=== PATIENT | female | born 1945 | race Caucasian/White ===

== ENCOUNTER → 2017-01-22 | Outpatient (CLI) | payer OTHER ==
[~2017-01-22] MED LIST: BUPR-267 PO; CALC600T9 PO; EZET10TA47 PO; LYSI500C2 PO; NTRGSL/4 UT; OXYC-643 PO; TRIATAB3 PO; ZOLP10TA PO
--- NOTE | 2017-01-22 13:03 | MAMMOGRAPHY REPORT ---
BILATERAL DIGITAL SCREENING MAMMOGRAM WITH CAD: 01/22/2017 CLINICAL HISTORY: Routine screening. Patient has no complaints. TECHNIQUE: Current study was also evaluated with a Computer Aided Detection (CAD) system. Bilatera l CC and MLO views were obtained. COMPARISON: Comparison is made to exams dated: 01/18/2015 mammogram, 01/22/2016 mammogram, 11/25/2013 mammogram, 11/08/2012 mammogram, and 11/03/2011 mammogram - [facility]. BREAST COMPOSITION: The tissue of both breasts is almost entirely fatty. FINDINGS: No suspicious masses, calcifications, or areas of architectural distortion are noted in e ither breast. There has been no significant interval change compared to prior exams. There are stab le postsurgical changes from bilateral reduction mammoplasty. Bilateral benign-appearing calcificat ions are not significantly changed. Lobulated circumscribed benign-appearing 8 mm mass seen within the left lower inner quadrant is not significantly changed dating back to the 2007 exam. IMPRESSION: ACR BI-RADS CATEGORY 2: BENIGN There is no mammographic evidence of malignancy. A 1 year screening mammogram is recommended. The p atient will receive written notification of the results. Approximately 10% of breast cancers are not detected with mammography. A negative mammographic repor t should not delay biopsy if a clinically suggestive mass is present. Yelena Lama M.D. ah/:01/22/2017 10:02:25 Tank Riveter: Ange HEBERT)([place]), [facility] letter sent: Normal 1/2 BI-RADS Code: ACR BI-RADS Category 2: Benign
== END | disposition home or self-care (01) ==
LOC: C.MAMM 09:11
PROVIDERS: ATTEND Family Medicine
DX: Z12.31 Encounter for screening mammogram for malignant neoplasm of breast (principal)

== ENCOUNTER 2018-01-12 22:57 | Emergency (ER) | payer OTHER ==
[~2018-01-12] VITALS: Ht 172.7 cm; Wt 89.8 kg
[2018-01-12 23:00] VITALS: TEMP 36.3; Ht 172.7 cm; Wt 89.8 kg
[2018-01-12] MEDS ORDERED: ASPIRIN 324 MG CHEW PO STA (23:24)
[2018-01-12] MEDS ORDERED: NITROGLYCERIN 0.4 MG SL PER TAB CHARGE SL PRN (23:30)
--- NOTE | 2018-01-12 23:40 | EMERGENCY ROOM VISIT NOTE ---
History Report prepared by Donna: Micah Estes Under the Supervision of: Dr. Omkar Conway M.D. First contact with patient: 23:15 Chief Complaint: CHEST PAIN Stated Complaint: CHEST PRESSURE, CHEST PAIN, SOME BACK PAIN Nursing Triage Summary: Patient ambulatory to triage with an upright and steady gait, states "I have had chest pains since Thursday. 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 The pain is in the center of my chest and goes up my throat and into the center of my back. I have a fluttering in my chest along with this dull pressure." History of Present Illness The patient is a 72 year old female who presents to the Emergency Room with complaints of a constant chest pressure beginning about an hour and a half ago. The patient states that she has been having intermittent chest pressure and back pain beginning 2 days ago. 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 She reports that her pain goes into her neck and jaw. The patient states that her heart feels "fluttery." She denies any LOC, shoulder pain, nausea, vomiting, abdominal pain, urinary symptoms, change to her bowels, leg edema, calf pain, SOB, headache, black/bloody stool, and recent travel. She also denies any recent trauma. The patient states that she has a history of arthritis and a cholecystectomy, and notes that her current pain feels similar to when she had her cholecystectomy. She reports that she does not have a personal history of heart disease, blood clots, and thyroid problems , but states that she has a family history of heart disease. She notes that she took a Tylenol for her arthritis prior to teaching her class tonight. Source of History: patient Onset: an hour and a half ago Position: chest Quality: pressure Timing: constant Associated Symptoms: + back pain, No LOC, No headache, No SOB, No nausea, No vomiting, No abdominal pain, No urinary symptoms Note: The patient also complains of neck, jaw pain, and a "fluttery" heart. She denies any shoulder pain, change to her bowels, leg edema, calf pain, and black/ bloody stool. Review of Systems See HPI for pertinent positives & negatives. A total of 10 systems reviewed and were otherwise negative. Past Medical & Surgical Medical Problems: (1) Arthritis (2) Essential hypertension (3) HYPERLIPIDEMIA NEC/NOS (4) Vaginal hernia Surgical Problems: (1) History of cholecystectomy Family History FHx: heart disease Social History Smoking Status: Never Smoker Alcohol Use: none Drug Use: none Marital Status: Housing Status: lives with family Occupation Status: retired Current/Historical Medications Scheduled Bupropion Hcl (Bupropion Hcl Er), 150 MG PO BID Calcium Carbonate-Vitamin D (Calcium + D), 2 TABLETS PO DAILY Docusate Sodium (Colace), 100 MG PO DAILY Meloxicam (Mobic), 15 MG PO DAILY Triamterene/Hctz (Triamterene/Hctz 37.5-25MG), 1 TAB PO DAILY Zolpidem Tartrate (Ambien), 10 MG PO HS Allergies Coded Allergies: Codeine (Verified Allergy, Unknown, unknown, 01/13/18) Meperidine (Verified Allergy, Unknown, sates she thinks is allergic, ) Physical Exam Vital Signs Date Time Temp Pulse Resp B/P (MAP) Pulse Ox O2 Delivery O2 Flow Rate FiO2 01/13/18 02:50 62 18 120/72 98 Room Air 01/13/18 01:08 74 18 108/78 97 Room Air 01/13/18 00:02 75 01/13/18 00:01 79 18 167/97 98 Room Air 01/12/18 23:04 98 Room Air 01/12/18 23:00 36.3 85 20 180/96 98 Room Air Physical Exam GENERAL: Patient is well appearing, mildly anxious appearing, and in minimal distress. EYES: No scleral icterus, unremarkable pupils. ENT: Mucous membranes moist, no nasal congestion. NECK: No masses appreciated, no meningismus, trachea is midline. RESPIRATORY: No dyspnea. Clear to auscultation and equal bilaterally. No wheeze , no rhonchi. CARDIOVASCULAR: Regular rate and rhythm. No murmurs, rubs, gallops appreciated. GASTROINTESTINAL: Abdomen soft, nontender, no peritonitis. Bowel sounds positive. No masses appreciated. BACK: No midline tenderness, no CVA tenderness EXTREMITIES: Normal motion all extremities, no cyanosis, no edema. NEUROLOGIC: Alert and oriented, no acute motor or sensory deficits, no focal weakness, cranial nerves grossly intact. SKIN: No rash, no jaundice, no diaphoresis. Medical Decision & Procedures ER Provider Diagnostic Interpretation: X ray results are stated below per my interpretation: Chest: 1 view: No infiltrate, no effusion, normal cardiac border. Radiology results and stated below per my review and radiologist interpretation: CTA CHEST: No evidence of pulmonary embolus or aortic dissection. Prior cholecystectomy. Evidence of prior granulomatous disease. Radiologist: Harriet Castro DO. Laboratory Results 01/12/18 23:59 Red Blood Count 4.44, Mean Corpuscular Volume 91.9, Mean Corpuscular Hemoglobin 31.5, Mean Corpuscular Hemoglobin Concent 34.3, Mean Platelet Volume 9.8, Neutrophils (%) (Auto) 48.1, Lymphocytes (%) (Auto) 42.4, Monocytes (%) (Auto) 7.6, Eosinophils (%) (Auto) 1.2, Basophils (%) (Auto) 0.5, Neutrophils # (Auto) 2.71, Lymphocytes # (Auto) 2.39, Monocytes # (Auto) 0.43, Eosinophils # (Auto) 0.07, Basophils # (Auto) 0.03 01/12/18 23:59 Test 01/12/18 23:59 01/13/18 03:11 White Blood Count 5.64 K/uL (4.8-10.8) Red Blood Count 4.44 M/uL (4.2-5.4) Hemoglobin 14.0 g/dL (12.0-16.0) Hematocrit 40.8 % (37-47) Mean Corpuscular Volume 91.9 fL (80-100) Mean Corpuscular Hemoglobin 31.5 pg (25-34) Mean Corpuscular Hemoglobin Concent 34.3 g/dl (32-36) Platelet Count 196 K/uL (130-400) Mean Platelet Volume 9.8 fL (7.4-10.4) Neutrophils (%) (Auto) 48.1 % Lymphocytes (%) (Auto) 42.4 % Monocytes (%) (Auto) 7.6 % Eosinophils (%) (Auto) 1.2 % Basophils (%) (Auto) 0.5 % Neutrophils # (Auto) 2.71 K/uL (1.4-6.5) Lymphocytes # (Auto) 2.39 K/uL (1.2-3.4) Monocytes # (Auto) 0.43 K/uL (0.11-0.59) Eosinophils # (Auto) 0.07 K/uL (0-0.5) Basophils # (Auto) 0.03 K/uL (0-0.2) RDW Standard Deviation 44.0 fL (36.4-46.3) RDW Coefficient of Variation 13.1 % (11.5-14.5) Immature Granulocyte % (Auto) 0.2 % Immature Granulocyte # (Auto) 0.01 K/uL (0.00-0.02) Anion Gap 4.0 mmol/L (3-11) Est Creatinine Clear Calc Drug Dose 55.2 ml/min Estimated GFR () 59.4 Estimated GFR (Non- 51.2 BUN/Creatinine Ratio 27.2 (10-20) Calcium Level 9.3 mg/dl (8.5-10.1) Troponin I < 0.015 ng/ml (0-0.045) Bedside Troponin I < 0.030 ng/ml (0-0.045) Laboratory results as reviewed by me. Medications Administered Medications (Trade) Dose Ordered Sig/Raad Route Start Time Stop Time Status Last Admin Dose Admin Aspirin (Aspirin Chew) 324 mg NOW STAT PO 01/12/18 23:24 01/12/18 23:25 DC 01/12/18 23:59 324 MG Nitroglycerin (Nitrostat Tab) 0.4 mg Q5M PRN SL 01/12/18 23:30 01/13/18 04:09 DC 01/12/18 23:59 0.4 MG Sodium Chloride 500 ml @ 999 mls/hr Q31M STAT IV 01/13/18 00:39 01/13/18 01:09 DC 01/13/18 01:07 999 MLS/HR Ranitidine HCl (zANTac SYRUP) 150 mg NOW ONCE PO 01/13/18 01:00 01/13/18 01:01 DC 01/13/18 01:03 150 MG Al Hydroxide/Mg Hydroxide (Maalox Susp) 30 ml STK-MED ONCE .ROUTE 01/13/18 00:59 01/13/18 01:00 DC 01/13/18 01:02 30 ML Lidocaine HCl (Viscous Lidocaine 2% Soln) 20 ml STK-MED ONCE .ROUTE 01/13/18 00:59 01/13/18 01:00 DC 01/13/18 01:03 20 ML Acetaminophen (Tylenol Tab) 1,000 mg NOW STAT PO 01/13/18 03:11 01/13/18 03:12 DC 01/13/18 03:19 1,000 MG ECG Per My Interpretation Indication: chest pain Rate (beats per minute): 76 Rhythm: sinus rhythm Findings: other (PACs, no ischemia, QTC 436) ED Course 2319: The patient was evaluated in room B8. A complete history and physical exam was performed. 0003: I reevaluated and updated the patient. She is currently receiving her nitroglycerin and is still having discomfort. 0049: I rechecked the patient. She notes that the nitroglycerin had no effect on her symptoms. She is agreeable to a repeat cardiac enzyme in two hours, and does not want to stay in the hospital tonight. 0145: I rechecked the patient. Her symptoms have only mildly improved after the GI cocktail. She notes that still wants to go home but is agreeable to CT of the chest for PE and aortic evaluation. 0330: Reevaluated the patient. Discussed results and discharge instructions: She verbalized understanding and agreement. The patient is ready for discharge. Medical Decision Differential: Cardiac Ischemia (STEMI, NSTEMI, Unstable Angina, etc), Aortic Dissection, Arrhythmia, Pulmonary Embolism, Pneumonia, Pneumothorax, MSK, Infectious, Pericarditis/Myocarditis, Esophageal Rupture, Gastrointestinal, amongst other pathologies entertained. 72 yr old female with pressure like chest pain substernal radiating to back and base of neck arrives for evaluation. Initial EKG and trop negative. CXR clear. No improvement with SLNTG. Questionable improvement with IV Fluids and GI Cocktail. Repeat Trop still negative. As continued discomfort felt further imaging warranted and thus CTA Chest done which is negative. Patient with repeat Trop a 3rd time which is still negative. Pain eventually resolving and she is feeling well. She very much wishes to go home. Suspect this is MSK/ Costochondral but I made clear to her that given her age she is still at risk of ACS. Made it very clear she must call PCP in am and set up follow up, as well as to discuss HTN while there. She and make clear they wish to go home and given extended rule out here I feel this is reasonable. She is aware of symptoms requiring RTED and is stable at discharge. Medication Reconcilliation Current Medication List: was personally reviewed by me Blood Pressure Screening Patient's blood pressure: Normal blood pressure Blood pressure disposition: Did not require urgent referral Impression Primary Impression: Substernal precordial chest pain Additional Impression: Hypertension Scribe Attestation The scribe's documentation has been prepared under my direction and personally reviewed by me in its entirety. I confirm that the note above accurately reflects all work, treatment, procedures, and medical decision making performed by me. Departure Information Dispostion Home / Self-Care Referrals Payam Mccann D.O. (PCP) Forms Call Back Authorization, HOME CARE DOCUMENTATION FORM, IMPORTANT VISIT INFORMATION Patient Instructions ED Chest Pain Atypical Unkn Cause, [facility] Additional Instructions If you develop worsening chest pain, shortness of breath, passing out or other concerns call 911 or return immediately. You must call your Primary Provider in the morning to schedule an urgent follow up to discuss further testing. This is very important! Your blood pressure was elevated during this visit. This is quite common in many people who are being evaluated in the Emergency Department for many reasons. However, it is important that you have your Primary Care Provider recheck your blood pressure and discuss whether treatment will be needed. skilled nursing elevated blood pressure can lead to strokes, heart attacks, kidney failure amongst other medical issues. If you develop severe headaches, chest pain, weakness in arms or legs, or other concerning symptoms call 911. Problem Qualifiers
[2018-01-13] MEDS ORDERED: MELO-84 PO (00:05)
[2018-01-13] MEDS ORDERED: DOCU-94 PO (00:05)
[2018-01-13 00:15] LABS: BASO % 0.5 %; BASO ABS # 0.03 K/uL (0-0.2); EOS % 1.2 %; EOS ABS # 0.07 K/uL (0-0.5); HEMATOCRIT 40.8 % (37-47); IG# 0.01 K/uL (0.00-0.02); LYMPH % 42.4 %; LYMPH ABS # 2.39 K/uL (1.2-3.4); MEAN CELL VOLUME 91.9 fL (80-100); MEAN CORPUSCULAR HEMOGLOBIN 31.5 pg (25-34); MEAN CORPUSCULAR HGB CONC 34.3 g/dl (32-36); MEAN PLATELET VOLUME 9.8 fL (7.4-10.4); MONO % 7.6 %; MONO ABS # 0.43 K/uL (0.11-0.59); NEUT % 48.1 %; NEUT ABS # 2.71 K/uL (1.4-6.5); PLATELET COUNT 196 K/uL (130-400); RED CELL DISTRIBUTION WIDTH CV 13.1 % (11.5-14.5); WHITE BLOOD COUNT 5.64 K/uL (4.8-10.8)
[2018-01-13 00:32] LABS: BLOOD UREA NITROGEN 29 mg/dl (7-18); CALCIUM 9.3 mg/dl (8.5-10.1); CARBON DIOXIDE 30 mmol/L (21-32); CREATININE 1.08 mg/dl (0.60-1.20); GLUCOSE 100 mg/dl (70-99); POTASSIUM 3.5 mmol/L (3.5-5.1); SODIUM 140 mmol/L (136-145)
[2018-01-13] MEDS ORDERED: SODIUM CHLORIDE 0.9% 500ML 500 ML IV STA (00:39)
[2018-01-13] MEDS ORDERED: GI COCKTAIL PO STA (00:48)
[2018-01-13] MEDS ORDERED: LIDOCAINE HCL 2% VISC SOLN 20 ML UDC ONE (00:59)
[2018-01-13] MEDS ORDERED: ALUMINUM/MAGNESIUM SUSP 30 ML UDC ONE (00:59)
[2018-01-13] MEDS ORDERED: RANITIDINE HCL SYRUP 150 MG/10 ML UDC PO ONE (01:00)
[2018-01-13] MEDS ORDERED: CEPHALEXIN MONOHYDRATE 250 MG CAP PO ONE (01:45)
[2018-01-13] MEDS ORDERED: OPTIRAY 320 IV PRN (02:15)
[2018-01-13 02:50] VITALS: BP 120/72; PULSE 62; O2SAT 98
[2018-01-13] MEDS ORDERED: ACETAMINOPHEN 500 MG TAB PO STA (03:11)
--- NOTE | 2018-01-13 07:25 | DIAGNOSTIC IMAGING REPORT ---
SINGLE VIEW CHEST CLINICAL HISTORY: Atypical chest pain. FINDINGS: An AP, portable, upright chest radiograph is compared to study dated 05/04/2013. The examination is degraded by portable technique and patient rotation. The cardiomediastinal silhouette is unremarkable. Scattered calcified granulomas are incidentally noted. The lungs and pleural spaces are otherwise clear. No pneumothorax is seen. The bony thorax is grossly intact. IMPRESSION: No active disease in the chest. Electronically signed by: Roscoe Evans M.D. 01/13/2018 7:24 AM Dictated Date/Time: 01/13/2018 7:23 AM
--- NOTE | 2018-01-13 07:29 | DIAGNOSTIC IMAGING REPORT ---
CHEST CTA for PULMONARY ARTERIES CT DOSE: 398.47 mGy.cm HISTORY: Atypical chest pain extending into the back. TECHNIQUE: Multiaxial CT images of the chest were performed following the intravenous administration of contrast to evaluate the pulmonary arteries. Maximal intensity projection images were also obtained. A dose lowering technique was utilized adhering to the principles of ALARA. COMPARISON STUDY: None. FINDINGS: The visualized liver and adrenal glands are unremarkable. Cholecystectomy. Mild thickening at the gastric antrum which could be due to underdistention. Punctate calcified granuloma within the spleen. No mediastinal or hilar lymphadenopathy. No fractures within the visualized osseous structures. No pneumothorax. The central airways are patent. Calcified granuloma within the left upper lobe. Focal area of cystic change within the left lower lobe medially. This is likely chronic. No focal lung consolidations to suggest pneumonia. A 3 mm nodule within the right lower lobe on image 134. No focal lung consolidations to suggest pneumonia. A few calcified left hilar lymph nodes. Normal caliber thoracic aorta with no evidence for dissection. No evidence for pulmonary embolus. IMPRESSION: 1. No evidence for pulmonary embolus. 2. Questionable mild thickening at the gastric antrum which may be due to underdistention. If the patient is complaining of epigastric pain then consider follow-up endoscopy to exclude the less likely possibility of gastric ulceration. Electronically signed by: Maximilian Vasques M.D. 01/13/2018 7:28 AM Dictated Date/Time: 01/13/2018 7:20 AM
== END 2018-01-13 03:36 | disposition home or self-care (01) ==
LOC: C.EDB 22:58
DX: R07.2 Precordial pain (principal); I10 Essential (primary) hypertension; M19.90 Unspecified osteoarthritis, unspecified site; E11.9 Type 2 diabetes mellitus without complications; E78.5 Hyperlipidemia, unspecified; Z82.49 Family history of ischemic heart disease and other diseases of the circulatory system; Z79.899 Other long term (current) drug therapy; Z88.5 Allergy status to narcotic agent

== ENCOUNTER → 2018-01-28 | Outpatient (CLI) | payer OTHER ==
[~2018-01-28] MED LIST changes: +DOCU-94 PO; -EZET10TA47 PO; -LYSI500C2 PO; +MELO-84 PO; -NTRGSL/4 UT; -OXYC-643 PO
--- NOTE | 2018-01-28 14:44 | MAMMOGRAPHY REPORT ---
BILATERAL DIGITAL SCREENING MAMMOGRAM TOMOSYNTHESIS WITH CAD: 01/28/2018 CLINICAL HISTORY: Routine screening. Patient has no complaints. TECHNIQUE: Breast tomosynthesis in addition to standard 2D mammography was performed. Current study was also evaluated with a Computer Aided Detection (CAD) system. COMPARISON: Comparison is made to exams dated: 01/22/2017 mammogram, 01/22/2016 mammogram, 01/18/2015 m ammogram, 11/25/2013 mammogram, 11/08/2012 mammogram, and 11/03/2011 mammogram - [facility]ter. BREAST COMPOSITION: The tissue of both breasts is almost entirely fatty. FINDINGS: No suspicious masses, calcifications, or areas of architectural distortion are noted in ei ther breast. There has been no significant interval change compared to prior exams. There are stable postsurgical changes from bilateral reduction mammoplasty. Bilateral nodularity and bilateral benig n-appearing calcifications are not significantly changed. IMPRESSION: ACR BI-RADS CATEGORY 2: BENIGN There is no mammographic evidence of malignancy. A 1 year screening mammogram is recommended. The pa tient will receive written notification of the results. Approximately 10% of breast cancers are not detected with mammography. A negative mammographic report should not delay biopsy if a clinically suggestive mass is present. Yelena aLma M.D. ah/:01/28/2018 09:51:44 Automobile Technician: Honey Phillips M, [facility] letter sent: Normal 1/2 BI-RADS Code: ACR BI-RADS Category 2: Benign
== END | disposition home or self-care (01) ==
LOC: C.MAMM 09:06
PROVIDERS: ATTEND Family Medicine
DX: Z12.31 Encounter for screening mammogram for malignant neoplasm of breast (principal)

== ENCOUNTER 2021-04-09 05:00 | Observation (INO) ==
--- NOTE | 2021-03-06 12:18 | PAT Medication Instructions ---
Medication Instructions Date of Service March 06, 2021 Home Medications Medication Instructions Recorded acetaminophen [Pain Reliever] 1,000 mg PO Q8H #0 tab 07/08/18 bupropion HCl 300 mg PO QAM calcium carbonate-vitamin D3 [Calcium 500 + D] 2 tab PO QAM triamterene-hydrochlorothiazid 1 cap PO QAM PreserVision AREDS-2 1 tab PO QAM acetaminophen [Pain Reliever] 1,000 mg PO Q8H calcium carbonate-vitamin D3 [Calcium + D] 1 tab PO QAM docusate sodium [Colace] 100 mg PO BID [id number] [krill oil] 1 cap PO QAM turmeric 400 mg PO BID zolpidem [Ambien] 5 mg PO HS STOP taking 2 weeks before surgery If surgery is within 2 weeks, stop taking as soon as possible. PreserVision AREDS-2 1 tab PO QAM [id number] [krill oil] 1 cap PO QAM turmeric 400 mg PO BID DO NOT take the morning of surgery calcium carbonate-vitamin D3 [Calcium 500 + D] 2 tab PO QAM triamterene-hydrochlorothiazid 1 cap PO QAM calcium carbonate-vitamin D3 [Calcium + D] 1 tab PO QAM docusate sodium [Colace] 100 mg PO BID Take morning of surgery With a small sip of water, OTHERWISE NOTHING TO EAT OR DRINK AFTER MIDNIGHT: bupropion HCl 300 mg PO QAM acetaminophen [Pain Reliever] 1,000 mg PO Q8H (if needed, may be taken up to four hours before surgery) Take evening before surgery acetaminophen [Pain Reliever] 1,000 mg PO Q8H (if needed) docusate sodium [Colace] 100 mg PO BID zolpidem [Ambien] 5 mg PO HS Other Notes If you have any questions please call us at [phone] or [phone] or [phone] or [phone]
--- NOTE | 2021-03-07 11:37 | Anesthesiology Consultation ---
Date of Service March 07, 2021 Assessment & Plan (1) Encounter for pre-operative examination: COVID Status: As of 03/07 assessment, patient denies travel to endemic area, known exposure/sick contacts, or symptoms of COVID19. Patient advised to adhere to social distancing guidelines, wear a mask in public and avoid large crowds or unnecessary travel in the 2 weeks leading up to surgery. Preoperative COVID19 testing to be completed prior to surgery per surgeon's arrangements. Patient encouraged to be extra cautious/conscientious with COVID precautions between COVID testing and surgery. S/P R RYDER 07/06/18 -- SAB x 2 attempts, L3-L4. No complications per records. Chart Review Chart Review: Acceptable Risk for Surgery and Patient seen in Pre Admission Testing Teaching & Discussion Instructed NPO after midnight before surgery, except medications with 15 cc of water. Medication instructions provided according to the PAT guidelines. History Surgery Operation Date: 04/09/21 07:15 Proposed Procedures p Right Total Knee Arthroplasty(Right) - Boo Hurst DO Height/Weight Height: 5 ft 8.5 in Weight: 85.5 kg Allergies Allergy/AdvReac Type Severity Reaction Status Date / Time codeine Allergy Intermediate Hives Verified 03/05/21 14:21 meperidine Allergy Unknown PT UNSURE Verified 03/05/21 14:21 OF RXN celecoxib [From Celebrex] AdvReac Mild GI UPSET, Verified 03/05/21 14:21 DIARRHEA Medications Home Medications Medication Instructions Recorded Confirmed Last Taken bupropion HCl 300 mg PO QAM #0 05/04/13 03/05/21 07/05/18 20:00 150 mg calcium carbonate-vitamin D3 2 tab PO QAM #0 05/04/13 03/05/21 07/05/18 07:00 [Calcium 500 + D] two tabs triamterene-hydrochlorothiazid 1 cap PO QAM #0 tab 05/04/13 03/05/21 07/05/18 08:00 one tab PreserVision AREDS-2 1 tab PO QAM 06/10/18 03/05/21 07/05/18 08:00 one tab acetaminophen [Pain Reliever] 1,000 mg PO Q8H #0 tab 07/08/18 03/05/21 Unknown calcium carbonate-vitamin D3 1 tab PO QAM 03/05/21 03/05/21 Unknown [Calcium + D] docusate sodium [Colace] 100 mg PO BID 03/05/21 03/05/21 Unknown [id number] 1 cap PO QAM 03/05/21 03/05/21 Unknown [krill oil] turmeric 400 mg PO BID 03/05/21 03/05/21 Unknown zolpidem [Ambien] 5 mg PO HS 03/05/21 03/05/21 Unknown Past Medical History Medical History (Updated 03/08/21 @ 10:39 by David Wall) Depression Fluid retention BILAT. HANDS Hx of ovarian cancer Stage one, recently cancer free. Surgical intervention only. Hyperlipidemia HX OF Osteoarthritis Scoliosis Spinal stenosis Temporomandibular joint disorder NO LOCKING Exercise / Class Metabolic Activity II 4-5 Yardwork/Stairs/Walk up hill Past Family History Family History Other No family history of adverse response to anesthesia Past Surgical History Surgical History H/O bilateral oophorectomy History of arthroscopy RT KNEE History of bilateral breast reduction surgery History of breast biopsy RT/LEFT (BENIGN) History of cholecystectomy History of ERCP History of esophagogastroduodenoscopy (EGD) History of hysterectomy HX OF PARTIAL, FOLLOWED BY BSO AFTER DX OF OVARIAN CANCER History of tooth extraction History of total hip arthroplasty RT Hx of breast reduction, elective Past Anesthesia History No Hx of Anesthesia Complications and No Family Hx of Anesthesia Complications History of PONV No Hx of PONV and No Hx of Motion Sickness Social History Smoking Status: Never smoker Do You Dip or Chew Tobacco: No Hx Alcohol Use: Yes Alcohol type: beer, wine and hard liquor alcohol intake frequency: a few times a month Hx Substance Use: No substance use type: does not use Review of Systems Pt denies any recent chest pain, shortness of breath, palpitations, cough, fever, URI, or uncontrolled acid reflux. Physical Exam Vital Signs BP: 126/77 P: 70bpm SPO2: 96% RA T: 97.2 F R: 12 ENMT Mallampati Class: II Lab Results Anesthesia Preop Results Results Anesthesia Widget: WBC 4.85 K/uL (4.8-10.8) 03/07/21 Hgb 15.1 g/dL (12.0-16.0) 03/07/21 Hct 44.7 % (37-47) 03/07/21 Plt 232 K/uL (130-400) 03/07/21 Na 139 mmol/L (136-145) 03/07/21 K 3.8 mmol/L (3.5-5.1) 03/07/21 Cl 105 mmol/L (98-107) 03/07/21 CO2 28 mmol/L (21-32) 03/07/21 BUN 16 mg/dl (7-18) 03/07/21 Creat 0.81 mg/dl (0.6-1.2) 03/07/21 Glucose Level 95 mg/dl (70-99) 03/07/21 PT 9.9 Seconds (9.0-12.0) 03/07/21 PTT 28.0 Seconds (21.0-31.0) 03/07/21 INR 1.0 (0.9-1.1) 03/07/21 HA1c 5.8 % (4.5-5.6) H 03/07/21 Urine Color Yellow 03/07/21 Urine Appearance Clear (Clear) 03/07/21 Urine pH 7.5 (4.5-7.5) 03/07/21 Urine Specific Wellborn 1.012 (1.000-1.030) 03/07/21 Urine Protein Negative (Negative) 03/07/21 Urine Glucose (UA) Negative (Negative) 03/07/21 Urine Ketones Negative (Negative) 03/07/21 Urine Blood Negative (Negative) 03/07/21 Urine Nitrite Negative (Negative) 03/07/21 Urine Bilirubin Negative (Negative) 03/07/21 Urine Urobilinogen Negative (Negative) 03/07/21 Urine Leukocyte Esterase Negative (Negative) 03/07/21 Blood Type O Positive 03/07/21 Antibody Screen NEGATIVE 03/07/21 Testing Electrocardiogram Date: 03/07/21 Normal sinus rhythm at 60 bpm. Nondiagnostic inferior Q waves. Compared with EKG from 06/17/2018, PACs are no longer present. Chest X-Ray Date: 03/07/21 FINDINGS: PA and lateral chest radiographs are compared to study dated 06/17/2018. The heart is mildly enlarged noting atherosclerotic calcification of the thoracic aorta. The pulmonary vasculature is noncongested. Chronic interstitial thickening is similar to previous. No airspace consolidation or pleural effusion is identified. There are scattered calcified granulomas. There is no pneumothorax. The skeletal structures are osteopenic. The bony thorax appears intact. Calcified joint bodies are seen in the right shoulder. There is mild thoracolumbar scoliosis. Cholecystectomy clips are noted in the right upper quadrant. IMPRESSION: No active disease in the chest.
--- NOTE | 2021-04-07 22:12 | History & Physical Report ---
Date of Service April 09, 2021 Assessment & Plan (1) Degenerative joint disease of knee, right: I have indicated the patient for right total knee replacement. The risks, benefits and complications of surgery were explained to the patient which include but not limited to infection, acute blood loss, DVT/PE, injury to nerves, vessels, bone, soft tissue, arthrofibrosis, chronic pain, failure of the prosthesis, knee dislocation, leg length discrepancy, need for additional surgery, cardiac and pulmonary events and . The patient wished to proceed with surgery and informed consent was obtained at this time. We will plan for 81mg ASA BID post-operatively for DVT prophylaxis. Upon discharge the patient will be discharged home with home health services. Appropriate clearances by PCP were obtained. History of Present Illness Chief Complaint: Right knee pain/DJD Primary Care Provider: Payam Mccann DO The patient is a 75 year old female who presents with complaints of severe right knee pain and DJD. The patient has failed outpatient conservative treatments to this point which included NSAIDs, IA corticosteroid and LISA inj ections, home exercise/walking program. The patient's pain and limited function have progressed to the point where they severely hinder their activities of daily living and they no longer tolerate exercise programs. They are requesting to proceed with total knee replacement surgery. Allergies Allergy/AdvReac Type Severity Reaction Status Date / Time codeine Allergy Intermediate Hives Verified 04/09/21 05:34 meperidine Allergy Unknown PT UNSURE Verified 04/09/21 05:34 OF RXN celecoxib [From Celebrex] AdvReac Mild GI UPSET, Verified 04/09/21 05:34 DIARRHEA Home Medications Medication Instructions Recorded Confirmed Type bupropion HCl 300 mg PO QAM #0 05/04/13 04/09/21 History calcium carbonate-vitamin D3 2 tab PO QAM #0 05/04/13 04/09/21 History [Calcium 500 + D] triamterene-hydrochlorothiazid 1 cap PO QAM #0 tab 05/04/13 04/09/21 History PreserVision AREDS-2 1 tab PO QAM 06/10/18 04/09/21 History acetaminophen [Pain Reliever] 1,000 mg PO Q8H #0 tab 07/08/18 04/09/21 Rx calcium carbonate-vitamin D3 1 tab PO QAM 03/05/21 04/09/21 History [Calcium + D] docusate sodium [Colace] 100 mg PO BID 03/05/21 04/09/21 History [id number] 1 cap PO QAM 03/05/21 04/09/21 History [krill oil] turmeric 400 mg PO BID 03/05/21 04/09/21 History zolpidem [Ambien] 5 mg PO HS 03/05/21 04/09/21 History Past Med/Surg History Medical History Depression Fluid retention BILAT. HANDS Hx of ovarian cancer Stage one, recently cancer free. Surgical intervention only. Hyperlipidemia HX OF Osteoarthritis Scoliosis Spinal stenosis Temporomandibular joint disorder NO LOCKING Surgical History H/O bilateral oophorectomy History of arthroscopy RT KNEE History of bilateral breast reduction surgery History of breast biopsy RT/LEFT (BENIGN) History of cholecystectomy History of ERCP History of esophagogastroduodenoscopy (EGD) History of hysterectomy HX OF PARTIAL, FOLLOWED BY BSO AFTER DX OF OVARIAN CANCER History of tooth extraction History of total hip arthroplasty RT Hx of breast reduction, elective Family History Other No family history of adverse response to anesthesia Social History Smoking Status: Never smoker Second Hand Exposure: No; Do You Dip or Chew Tobacco: No; Hx Alcohol Use: Yes Alcohol type: other Hx Substance Use: No Preferred Language: Turkmen Communication Ability: Effective Educational Director Required: No Beliefs That Will Affect Care: None Current Living Situation: Spouse Feels Safe at Home: Yes Safety Concerns: Feels Safe At This Time Assistive Devices: Glasses, Hearing Aid - Bilateral and Walker Review of Systems Review of Systems: All systems reviewed & are unremarkable except as noted in HPI & below Constitutional: as per Subjective / HPI Physical Exam Physical Exam: RLE NVSI +EHL/FHL/TA/GS SILT grossly, +2 DP pulse, compartments soft NT, limited painful ROM of the knee, 5-110 degrees of flexion, +crepitus. Constitutional: WD/WN, vitals as above Eyes: PERRL, conjunctivae normal, anicteric sclerae ENMT: external ear and nose normal, oropharynx normal Neck: trachea midline, no thyromegaly Respiratory: normal respiratory effort, lungs clear to auscultation Cardiovascular: RRR, no murmur, no edema Gastrointestinal (Abdomen): normal bowel sounds, soft, nontender, no hepatosplenomegaly Musculoskeletal: no cyanosis or clubbing, extremities motor strength 5/5 Skin: no rashes, warm and dry Neurologic: patellar DTR's 2+ bilat, sensation intact Psychiatric: A+Ox3, euthymic affect Lymphatic: no cervical or axillary lymphadenopathy Results & Data Results & Data ([facility]) Diagnostic Findings Multiple views of the knee demonstrates severe tricompartmental DJD with complete loss of the medial joint space. +osteophytes, +sclerosis, +subchondral cysts.
[2021-04-09] MEDS ORDERED: GABAPENTIN 300 MG CAP PO SCH (06:00)
[2021-04-09] MEDS ORDERED: FAMOTIDINE 20 MG TAB PO SCH (06:00)
[2021-04-09] MEDS ORDERED: ACETAMINOPHEN 500 MG TAB PO SCH (06:00)
[2021-04-09] MEDS ORDERED: METOCLOPRAMIDE HCL 10 MG TABLET PO SCH (06:00)
[2021-04-09] MEDS ORDERED: CeleBREX 200 MG CAP PO SCH (06:00)
[2021-04-09] MEDS ORDERED: oxyCODONE HCL 10 MG TABCR (OxyCONTIN) PO SCH (06:00)
[2021-04-09] MEDS ORDERED: ceFAZolin 2000MG 2,000 MG/15 ML SYR IV SCH (06:00)
[2021-04-09] MEDS ORDERED: TRANEXAMIC ACID 1,000 MG **IV Intra-op IV SCH (06:00)
[2021-04-09] MEDS ORDERED: TRANEXAMIC ACID 1,000 MG **IV Pre-op IV SCH (06:00)
[2021-04-09] MEDS ORDERED: ROPIVACAINE 0.5% HCL/PF 150 MG, BUPIVACAINE 0.75% MPF 20 ML, EPINEPHrine 30MG/30ML (OR ... INSTIL SCH (06:00)
[2021-04-09] MEDS ORDERED: LR 500ML BOLUS, THEN 15ML/HR IV SCH (06:00)
[2021-04-09] MEDS ORDERED: BUPIVACAINE 0.5 % 5 MG/1 ML PF 10ML VIAL ONE (06:28)
[2021-04-09] MEDS ORDERED: BUPIVACAINE 0.25% 30 ML VIAL ONE (06:28)
[2021-04-09] MEDS ORDERED: EPINEPHrine INJ 1 MG/ML AMP ONE (06:28)
[2021-04-09] MEDS ORDERED: ATROPINE SULFATE 0.1 MG/ML 10ML SYR IV PRN (06:46)
[2021-04-09] MEDS ORDERED: ONDANSETRON INJ 2 MG/ML 2 ML VIAL IV PRN ×2 (06:46→10:42)
[2021-04-09] MEDS ORDERED: ePHEDrine sulfate 50 MG/ML AMP IV PRN (06:46)
[2021-04-09] MEDS ORDERED: fentaNYL citrate 100 MCG/2 ML VIAL IV PRN (06:46)
[2021-04-09] MEDS ORDERED: HYDROmorphone INJ 2 MG/ML SYR/VIAL IV PRN (06:46)
[2021-04-09] MEDS ORDERED: PROPOFOL IV EMULSION 10 MG/ML 20 ML VIAL IV ONE (06:47)
[2021-04-09] MEDS ORDERED: MIDAZOLAM HCL 1 MG/ML 2ML VIAL ONE (06:47)
[2021-04-09] MEDS ORDERED: GLYCOPYRROLATE 0.2 MG/ML VIAL ONE ×2 (06:47→08:34)
[2021-04-09] MEDS ORDERED: LIDOCAINE 2% 2 ML VIAL/AMP(20MG/ML) INFIL ONE (06:47)
[2021-04-09] MEDS ORDERED: fentaNYL citrate 100 MCG/2 ML VIAL ONE (06:48)
--- NOTE | 2021-04-09 06:56 | History & Physical Bridge Note ---
Date of Service April 09, 2021 History & Physical Bridge Note I have examined the patient, reviewed the History & Physical and in the interval since the performance of the History & Physical I have noted the following changes of clinical significance: no changes noted
[2021-04-09] MEDS ORDERED: ORTHO JOINT ANESTHETIC ONE (07:15)
[2021-04-09] MEDS ORDERED: HYDROmorphone INJ 2 MG/ML SYR/VIAL ONE (08:02)
[2021-04-09] MEDS ORDERED: ONDANSETRON INJ 2 MG/ML 2 ML VIAL ONE (08:30)
[2021-04-09] MEDS ORDERED: DEXAMETHASONE SOD INJ 4 MG/ML VIAL ONE (08:30)
[2021-04-09] MEDS ORDERED: NEOSTIGMINE METHYLSULFATE 1 MG/ML 10ML VIAL ONE (08:34)
--- NOTE | 2021-04-09 08:52 | Post Operative Brief Note ---
Immediate Post Op Note v1 Date of Surgery April 09, 2021 Pre & Post Diagnosis Operation Date: 04/09/21 07:15 Pre-Op Diagnosis: Degenerative Joint Disease, Right Knee Post-Op Diagnosis: Degenerative Joint Disease, Right Knee I identified the patient and participated in the time-out.: Yes Procedure Operation Date: 04/09/21 07:15 Actual Procedures p Right Total Knee Arthroplasty(Right) - Boo Hurst DO Surgeon Boo Hurst DO Development Educator Chandu Iglesias Estimated Blood Loss 50 Findings Consistent with Post-Op Diagnosis Fluids See anesthesia report Specimens Proximal tibia and distal femur bone fragments Anesthesia Type General Complications none Disposition Disposition: Recovery Room Overlapping Procedure I was present for: the critical portions of procedure. I was immediately available: during the entire case. Back up surgeon: was not required during procedure.
--- NOTE | 2021-04-09 08:54 | Operative Report ---
Post Operative Report Pre & Post Diagnosis Operation Date: 04/09/21 07:15 Pre-Op Diagnosis: Degenerative Joint Disease, Right Knee Post-Op Diagnosis: Degenerative Joint Disease, Right Knee I identified the patient and participated in the time-out.: Yes Procedure Operation Date: 04/09/21 07:15 Actual Procedures p Right Total Knee Arthroplasty(Right) - Boo Hurst DO Surgeon Boo Hurst DO Brake Reliner Chandu Iglesias Estimated Blood Loss 50 Findings Consistent with Post-Op Diagnosis Fluids See anesthesia report Specimens Proximal tibia and distal femur bone fragment Anesthesia Type General Complications none Disposition Disposition: Recovery Room Indications The patient is a 75-year-old female presents with long history of severe right knee tricompartmental DJD and failed outpatient conservative treatments including NSAIDs, bracing, injections and home walking/exercise program. The patient's symptoms have progressed to the point where it has been difficult to perform normal activities of daily living. I have indicated the patient for a right total knee arthroplasty, the risks and benefits and complications of the procedure include but are not limited to infection bleeding damage to bone, nerves, vessels, surrounding soft tissue, blood clots, loss of function, leg length discrepancy, dislocation, failure of the components, need for additional surgery and . The patient wished to proceed with surgery at this time and informed consent was obtained. Appropriate clearances were obtained. Description of Procedure COMPONENTS USED: David persona knee system: Femur size 6 standard, Tibia size E, Tibial articulating surface 10 PS, Patella 29 mm Following induction of general anesthesia, a tourniquet was applied to the proximal aspect of the thigh and the patient's right leg was prepped and draped in the usual sterile manner. A timeout was performed, patient identified and site marvin confirmed. Appropriate pre-operative IV antibiotics were given. The limb was exsanguinated with an Esmarch bandage and tourniquet was inflated to 300 mmHg. A longitudinal midline incision was made over the anterior knee. Subcutaneous tissue was sharply dissected down to fascia. Electrocautery was used for hemostasis. Next a parapatellar arthrotomy was performed. Patella was everted and the knee was flexed. A Ly retractor was used to expose the synovium above on the anterior aspect of the femur and removed down to bone. Next, the anterior fat pad was removed to aid in visualization. The medial face of the tibia was cleared of soft tissue first with a Bovie and a johnson elevator. This tissue was retracted posteriorly using a blunt Hohmann. Next, the extra-medullary tibial cutting guide was placed to the anterior aspect of the tibia. The tibia resection level was set taking 2mm from the defective tibial condyle. Resection depth was once again confirmed with yamilka wing. The medial and lateral collateral ligament was protected with two Hohmann retractors. The tibia guide was removed and proximal tibial bone fragment removed utilizing straight osteotome, electrocautery and Sherif. Next, the distal femur intramedullary canal was accessed utilizing the step drill. The intramedullary distal femur cutting guide was placed into the canal and pinned into place. The distal femur was cut on the 5 degree setting. Next the cutting guide was removed and the femur was sized. Care was taken to ensure appropriate station cleaning porter all rotation and 3 degree holes were drilled. A size 6 4-in-1 cutting block was placed on the distal end of the femur and secured into place with two short headed screws. Two bent Hohmann retractors were placed to protect the medial and lateral collateral ligaments. The oscillating saw was used to cut anterior, posterior, anterior chamfer and posterior chamfer. The four and one cutting block was removed and bone fragments excised. Laminar hot box operator was placed laterally and the ACL and PCL were removed followed by the medial meniscus and posterior medial osteophytes. Aquamantys was utilized for any posterior medial bleeders and Orthomix injected into the posterior medial capsule. A laminar hot box operator was then placed in the medial compartment and the lateral meniscus and posterior osteophytes were removed. Aquamantys was utilized for any posterior lateral bleeders and Orthomix injected into the posterior lateral capsule. Next, drop katherine and spacer block were placed with the leg in flexion and extension to assess alignment and flexion/extension gaps. Next, the proximal tibia was assessed and two bent Hohmans were placed medial and lateral to aid in visualization. The appropriate tibia size and rotation was selected and a size E tibial plate was pinned into place with appropriate rotation. Preparation of the tibia was completed utilizing the matching tibial drill and broach. I then turned my attention back to the distal femur in a trial femoral component was impacted into place. Appropriate femoral width was assessed and selected. Next the femur PS box cut guide was placed and cut made with the reciprocal saw and the PS box provisional placed. A trial size 10 PS tibia articular tray was placed and varus-valgus balance assessed in 0 degrees of extension and 30, 60 and 90 degrees of flexion. A final tibial articular surface size 10 PS was chosen. Assess was gained to the patella and caliper utilized to measure width. The patella reamer was utilized and remaining bone removed with oscillating saw. A size 29 mm patella button was selected and the patella pegs drilled. Trial patella button was placed and tracking was assessed. The knee was found to be well balanced, well aligned with excellent patella tracking. The trials were removed and final components were obtained and assembled. The knee was irrigated copiously with sterile saline solution mixed with bacitracin. Access to the proximal tibia was once again obtained utilizing to the Hohmans and the proximal tibia and distal femur were dried with lap sponges. The final components were cemented into place and all excess cement was removed. A trial tibial articular surface was placed while cemented hardened. Knee stability was once again assessed and the final component inserted. A Betadine soak was performed. After 3 minutes, the knee was once more irrigated with copious sterile saline solution with bacitracin. The knee was injected with the remaining Orthomix which includes a combination of Ropivicaine 0.5% 150mg, Bupivicaine 0.5%/Epinephrine 1:200,000 30ml, Toradol 30mg, Dexamethasone 4mg, Ketamine 10mg, Clonidine 100mcg and NSS 30ml solution. The capsulotomy was closed with #1 Vicryl followed by subcutaneous closure with 2-0 Vicryl suture and skin was closed with shelbie. A sterile dry dressing was applied which included sarita incisional VAC, web roll and Dav wrap. Tourniquet was deflated at 78 minutes. The patient tolerated the procedure well and was taken to the PACU in stable condition. Due to the complex nature of the procedure, the entire surgery was performed with the operational assistance of Chandu Iglesias PA-C. The pier master assistant, under direct supervision, was involved in the actual performance of all aspects of the surgical procedure including patient positioning, hemostasis, tissue retraction, instrument management and wound closure. I attest to the content of the Intraoperative Record and any orders documented therein. Any exceptions are noted below.
--- NOTE | 2021-04-09 09:59 | Anesthesiology Progress Note ---
Date of Service April 09, 2021 Anesthesia Post Procedure Vital Signs Vital Signs: Temp Pulse Pulse Resp BP BP Pulse Ox 04/09/21 09:55 36.3 C L 72 18 138/85 93 04/09/21 09:45 72 13 135/91 97 04/09/21 09:35 81 15 138/73 97 04/09/21 09:27 36.4 C L 90 14 157/80 H 96 04/09/21 05:43 36.5 C 67 20 154/83 H 98 Transfer of Care Handoff Completed per policy Notes Mental Status: alert / awake / arousable and participated in evaluation Patient Amnestic to Procedure: Yes Nausea / Vomiting: adequately controlled Pain: adequately controlled Airway Patency, RR, SpO2: stable & adequate BP & HR: stable & adequate Hydration State: stable & adequate Anesthetic Complications: no major complications apparent and Pt Satisfied with anesthetic care
--- NOTE | 2021-04-09 10:16 | XRay Report ---
XR knee RT 1 or 2V routine HISTORY: 75 years-old Female Surgical Post Op right knee total joint arthroplasty COMPARISON: None TECHNIQUE: 2 views of the right knee FINDINGS: Right knee total joint arthroplasty and patella resurfacing. Anterior midline skin shelbie are noted along with expected postoperative soft tissue swelling with deep tissue air. No acute fracture, align ment or opaque foreign body. IMPRESSION: Right knee total joint arthroplasty with expected postoperative changes. ACT 112: Negative or not required by law. The above report was generated using voice recognition software. It may contain grammatical, syntax o r spelling errors. Electronically signed by: Isra Ramsay M.D. 04/09/2021 10:15 AM
[2021-04-09] MEDS ORDERED: bisacodyL 10 MG SUPP PR PRN (10:42)
[2021-04-09] MEDS ORDERED: TRIAMTERENE/HCTZ 37.5/25MG CAP PO SCH (10:42)
[2021-04-09] MEDS ORDERED: HYDROmorphone INJ 0.5 MG/0.5 ML SYR IV PRN (10:42)
[2021-04-09] MEDS ORDERED: diphenhydrAMINE Capsule 25 MG CAP PO PRN (10:42)
[2021-04-09] MEDS ORDERED: NALOXONE HCL 0.4 MG/1 ML VIAL/CARP IV PRN (10:42)
[2021-04-09] MEDS ORDERED: MAGNESIUM HYDROXIDE SUSP 30 ML UDC PO PRN (10:42)
[2021-04-09] MEDS ORDERED: METOCLOPRAMIDE HCL INJ 5 MG/ML 2 ML VIAL IV PRN (10:42)
[2021-04-09] MEDS ORDERED: oxyCODONE HCL IR 5 MG TAB (IMMEDIATE RELEASE) PO PRN (10:42)
[2021-04-09] MEDS: SODIUM CHLORIDE 0.9% 1000ML 1,000 ML IV SCH ×2 (10:57→21:06)
[2021-04-09] MEDS: MULTIVITAMIN TAB PO SCH (11:00)
[2021-04-09] MEDS: buPROPion SR 150 MG TABCR PO SCH (11:01)
[2021-04-09] MEDS: DOCUSATE SODIUM 100 MG CAP PO SCH ×2 (11:01→21:08)
--- NOTE | 2021-04-09 11:01 | Consultation ---
Date of Consultation April 09, 2021 Assessment & Plan (1) Degenerative joint disease of knee, right: s/p R TKA POD #[address] Hurst EBSami 50 ml tolerated procedure well Pain/wound management per Ortho Activity and therapy as prescribed by Ortho Encourage incentive spirometry and wean oxygen as able Monitor hemoglobin, pre op 15.1 (2) CKD (chronic kidney disease) stage 3, GFR 30-59 ml/min: baseline cr 1.0 avoid nephrotoxic agents (3) Swelling: pt denies hx of HTN states she takes triamterene/hctz for swelling no lower extremity swelling noted will hold triamterene/hctz for now, monitor daily and resume as able (4) Depression: mood stable continue bupropion (5) DVT prophylaxis: ASA BID per ortho Dispo: per primary PCP: France Mccann FULL CODE Pt was seen and examined in collaboration with Dr. Moreira, please see addendum Thank you for this consultation. We will follow the patient with you during their hospital stay. You can reach a member of the [facility] Hospitalist Team 27/04 via hospitalist role on tiger text. Supervising Physician Co-Signing Physician Notes Patient is a 75-year-old female with history of hypertension, CKD stage III and other medical problems was seen and evaluated postop after having right knee arthroplasty. Right knee pain at surgical site is controlled. She is doing well postoperatively. Denies any chest pain, shortness of breath, dizziness, nausea, abdominal pain. On exam patient is moderately built and nourished, no apparent distress, normocephalic atraumatic, lungs are clear to auscultation, normal breath sounds, S1-S2, no murmur, abdomen soft, nontender, normal bowel sounds, alert, awake, oriented, grossly no focal deficits, right surgical knee in dressing. Patient is consulted for postop medical management. Monitor CBC for blood loss anemia. Continue bowel regimen to prevent constipation. DVT prophylaxis as per primary team. PT OT when appropriate. Incentive spirometry. Renal function at baseline. Resume triamterene/hctz as able. I personally reviewed the record. Patient is interviewed and examined at bedside. Patient's care is coordinated with Maye Batista PA-C. Please refer to the documentation above for details of patient's presentation and for discussion of other issues. History of Present Illness Requesting Physician: Dr. Hurst Reason for Consultation: Postop medical management Attending Physician: Boo Hurst, History of Present Illness This is a 75-year-old female who has significant past medical history of HTN, CKD stage III, GERD, depression, history of ovarian cancer, history of frequent UTIs, osteoarthritis who presents for elective right total knee arthroplasty secondary to right knee tricompartmental arthritis. She failed outpatient conservative management. We have been consulted for medical management. She tolerated the procedure well. She states, "when I close my eyes I feel like I am in another world, but when I open them I return to this world." She states she has never had this happen with anesthesia before. Feels like it is slowing going away as she fully wakes up. She currently denies any fever, chills, sweats, lightheadedness, dizziness, chest pain, shortness of breath, cough, URI symptoms, nausea, vomiting, abdominal pain. Prior to procedure she denies any change in urinary or bowel habits. She denies any knee pain and starting to get feeling in toes. In regards to patient's hypertension she is treated with triamterene hydrochlorothiazide. She does have history of depression controlled on bupropion. She occasionally does have insomnia for which she takes as needed Ambien for. Allergies Allergy/AdvReac Type Severity Reaction Status Date / Time codeine Allergy Intermediate Hives Verified 04/09/21 05:34 meperidine Allergy Unknown PT UNSURE Verified 04/09/21 05:34 OF RXN celecoxib [From Celebrex] AdvReac Mild GI UPSET, Verified 04/09/21 05:34 DIARRHEA Home Medications Medication Instructions Recorded Confirmed Type bupropion HCl 300 mg PO QAM #0 05/04/13 04/09/21 History calcium carbonate-vitamin D3 2 tab PO QAM #0 05/04/13 04/09/21 History [Calcium 500 + D] triamterene-hydrochlorothiazid 1 cap PO QAM #0 tab 05/04/13 04/09/21 History PreserVision AREDS-2 1 tab PO QAM 06/10/18 04/09/21 History acetaminophen [Pain Reliever] 1,000 mg PO Q8H #0 tab 07/08/18 04/09/21 Rx calcium carbonate-vitamin D3 1 tab PO QAM 03/05/21 04/09/21 History [Calcium + D] docusate sodium [Colace] 100 mg PO BID 03/05/21 04/09/21 History siipj-[id number]-[id number] 1 cap PO QAM 03/05/21 04/09/21 History [krill oil] turmeric 400 mg PO BID 03/05/21 04/09/21 History zolpidem [Ambien] 5 mg PO HS 03/05/21 04/09/21 History Patient History Medical History (Updated 04/09/21 @ 11:20 by Maye Batista PA-C) CKD (chronic kidney disease) stage 3, GFR 30-59 ml/min Depression Fluid retention BILAT. HANDS Hx of ovarian cancer Stage one, recently cancer free. Surgical intervention only. Hyperlipidemia HX OF Osteoarthritis Scoliosis Spinal stenosis Temporomandibular joint disorder NO LOCKING Surgical History H/O bilateral oophorectomy History of arthroscopy RT KNEE History of bilateral breast reduction surgery History of breast biopsy RT/LEFT (BENIGN) History of cholecystectomy History of ERCP History of esophagogastroduodenoscopy (EGD) History of hysterectomy HX OF PARTIAL, FOLLOWED BY BSO AFTER DX OF OVARIAN CANCER History of tooth extraction History of total hip arthroplasty RT Hx of breast reduction, elective Family History Mother , 82 COPD (chronic obstructive pulmonary disease) Coronary heart disease Father , 82 Myocardial infarction Other No family history of adverse response to anesthesia Social History Smoking Status: Never smoker Second Hand Exposure: No; Do You Dip or Chew Tobacco: No; Hx Alcohol Use: Yes Alcohol type: other Hx Substance Use: No Preferred Language: Maori Communication Ability: Effective Bank Worker Required: No Beliefs That Will Affect Care: None Current Living Situation: Spouse Feels Safe at Home: Yes Safety Concerns: Feels Safe At This Time Assistive Devices: Glasses, Hearing Aid - Bilateral and Walker Review of Systems Review of Systems: All systems reviewed & are unremarkable except as noted in HPI & below Physical Exam Physical Exam: Constitutional: WD/WN, vitals as above, NAD, sitting up in bed, pleasant, conversing easily Head: Normocephalic, Atraumatic Eyes: PERRL, conjunctivae normal, anicteric sclerae ENMT: external ear and nose normal, oropharynx normal Neck: trachea midline, no thyromegaly normal visual inspection Respiratory: normal respiratory effort, lungs clear to auscultation, no wheeze, rales, rhonchi. Normal insp/exp effort, no accessory muscle use Cardiovascular: RRR, no murmur, no edema Vessels: no JVD or carotid bruit Chest: normal inspection of chest Abdomen: normal bowel sounds, soft, nontender, no hepatosplenomegaly Musculoskeletal: no cyanosis or clubbing, R knee NVI Distally, dressing CDI, vac in place, all other extremities motor strength 5/5 Skin: no rashes, warm and dry normal turgor Neurologic: PERRL, EOMI, accommodation nl, no face palsy, no dysarthria CN's II-XI intact bilaterally and moves all extremities Psychiatric: A+Ox3, euthymic affect Lymphatic: no cervical or axillary lymphadenopathy : deferred Results & Data ([facility]) Vital Signs (Past 12 Hours) Vital Signs Temp Pulse Pulse Resp BP BP Pulse Ox 04/09/21 10:20 67 13 124/68 94 04/09/21 10:05 64 13 144/78 H 96 04/09/21 09:55 36.3 C L 72 18 138/85 93 04/09/21 09:45 72 13 135/91 97 04/09/21 09:35 81 15 138/73 97 04/09/21 09:27 36.4 C L 90 14 157/80 H 96 04/09/21 05:43 36.5 C 67 20 154/83 H 98 Laboratory Results Preop labs 03/07/2021 WBC 4.85, H&H 15.1 and 44.7, platelet 232 Sodium 139, K3.8, BUN 16, creatinine 1.81 A1c 03/07/2021 5.8 Urinalysis negative Diagnostic Findings Knee X-Ray 04/09/21 09:46 XR knee RT 1 or 2V routine HISTORY: 75 years-old Female Surgical Post Op right knee total joint arthroplasty COMPARISON: None TECHNIQUE: 2 views of the right knee FINDINGS: Right knee total joint arthroplasty and patella resurfacing. Anterior midline skin shelbie are noted along with expected postoperative soft tissue swelling with deep tissue air. No acute fracture, alignment or opaque foreign body. IMPRESSION: Right knee total joint arthroplasty with expected postoperative changes. ACT 112: Negative or not required by law. The above report was generated using voice recognition software. It may contain grammatical, syntax or spelling errors. Electronically signed by: Isra Ramsay M.D. 04/09/2021 10:15 AM Medications Administered Medication List Acetaminophen (Acetaminophen 500 Mg Tab) 1,000 mg PO PREOP [facility] Stop: 04/09/21 18:00 Last Admin: 04/09/21 05:46 Dose: 1,000 mg Documented by: [id number] Celecoxib (Celebrex 200 Mg Cap) 200 mg PO PREOP [facility] Stop: 04/09/21 18:00 Last Admin: 04/09/21 05:50 Dose: Not Given Documented by: [id number] Famotidine (Famotidine 20 Mg Tab) 20 mg PO PREOP [facility] Stop: 04/09/21 18:00 Last Admin: 04/09/21 05:47 Dose: 20 mg Documented by: [id number] Gabapentin (Gabapentin 300 Mg Cap) 300 mg PO PREOP [facility] Stop: 04/09/21 18:00 Last Admin: 04/09/21 05:47 Dose: 300 mg Documented by: [id number] Cefazolin Sodium (Ancef 2000mg) 2,000 mg in 15 mls @ 3.75 mls/min IV PREOP [facility]; Protocol Stop: 04/09/21 18:00 Last Admin: 04/09/21 07:25 Dose: 3.75 mls/min Documented by: [id number] Tranexamic Acid (Tranexamic Acid / 0.7% Nacl) 1,000 mg in 100 mls @ 600 mls/hr IV TODAY@0600 [facility] Stop: 04/09/21 18:00 Last Infusion: 04/09/21 07:25 Dose: 0 mls/hr Documented by: [id number] Admin: 04/09/21 07:09 Dose: 600 mls/hr Documented by: [id number] Tranexamic Acid (Tranexamic Acid / 0.7% Nacl) 1,000 mg in 100 mls @ 600 mls/hr IV TODAY@0600 [facility] Stop: 04/09/21 18:00 Last Admin: 04/09/21 08:48 Dose: 600 mls/hr Documented by: [id number] Lactated Ringer's (Lr) 1,000 mls @ 15 mls/hr IV .Q24H [facility] Stop: 04/09/21 18:00 Last Infusion: 04/09/21 07:25 Dose: 0 mls/hr Documented by: [id number] Admin: 04/09/21 05:49 Dose: 15 mls/hr Documented by: [id number] Metoclopramide HCl (Metoclopramide Hcl 10 Mg Tablet) 10 mg PO PREOP [facility] Stop: 04/09/21 18:00 Last Admin: 04/09/21 05:47 Dose: 10 mg Documented by: [id number] Oxycodone HCl (Oxycodone Hcl 10 Mg Tabcr (Oxycontin)) 10 mg PO PREOP [facility] Stop: 04/09/21 18:00 Last Admin: 04/09/21 05:48 Dose: 10 mg Documented by: [id number] Discontinued Medications Ropivacaine 150 mg/Bupivacaine HCl 20 ml/Epinephrine HCl 0.15 mg/Ketorolac Tromethamine 30 mg/Dexamethasone 4 mg/ Ketamine HCl 10 mg/ Clonidine HCl 100 mcg/ Sodium Chloride 88.35 mls @ 0 mls/hr INSTIL TODAY@0600 [facility]; Protocol Stop: 04/09/21 06:01 Last Admin: 04/09/21 08:54 Dose: 1 mls/hr Documented by: [id number] Miscellaneous (Ortho Joint Anesthetic ) Confirm Administered Dose 1 ea .ROUTE .STK-MED ONE Stop: 04/09/21 07:16 Last Admin: 04/09/21 08:20 Dose: Not Given Documented by: [id number]
[2021-04-09] MEDS: KETOROLAC TROMETHAMINE 15 MG/ML VIAL IV SCH ×3 (12:30→22:59)
[2021-04-09] MEDS: ACETAMINOPHEN 500 MG TAB PO SCH ×2 (14:44→21:07)
--- NOTE | 2021-04-09 16:03 | Orthopedic Progress Note ---
Date of Service April 09, 2021 Assessment & Plan (1) Degenerative joint disease of knee, right: s/p R TKA -ancef x 24 -DVT ppx: SCDs, TEDs, 81mg ASA BID -WBAT RLE -PT/OT -PO XR demonstrates well aligned well fixed prothesis without fracture/dislocation -am labs -DC planning Admission and Anticipated Discharge Date Admission Date: April 09, 2021 Subjective Post Operative Progress Note Patient seen sitting up in bed, comfortable, denies complaints, pain well controlled, no acute issues. Review of Systems Review of Systems: All systems reviewed & are unremarkable except as noted in HPI & below Constitutional: as per Subjective / HPI Physical Exam Physical Exam: RLE PE limited secondary to spinal, +2 DP pulse compartments soft NT, dressing CDI. Constitutional: WD/WN, vitals as above Eyes: PERRL, conjunctivae normal, anicteric sclerae ENMT: external ear and nose normal, oropharynx normal Neck: trachea midline, no thyromegaly Respiratory: normal respiratory effort, lungs clear to auscultation Cardiovascular: RRR, no murmur, no edema Gastrointestinal (Abdomen): normal bowel sounds, soft, nontender, no hepatosplenomegaly Musculoskeletal: no cyanosis or clubbing, extremities motor strength 5/5 Skin: no rashes, warm and dry Neurologic: patellar DTR's 2+ bilat, sensation intact Psychiatric: A+Ox3, euthymic affect Lymphatic: no cervical or axillary lymphadenopathy Results & Data ([facility]) Vital Signs (Past 12 Hours) Vital Signs Temp Pulse Pulse Pulse Resp BP BP 04/09/21 15:18 36.4 C L 61 16 118/69 04/09/21 14:44 04/09/21 12:34 78 18 138/87 04/09/21 11:32 58 L 16 119/76 04/09/21 11:05 36.4 C L 59 L 16 133/83 04/09/21 10:42 36.5 C 59 L 16 129/76 04/09/21 10:20 67 13 124/68 04/09/21 10:05 64 13 144/78 H 04/09/21 09:55 36.3 C L 72 18 138/85 04/09/21 09:45 72 13 135/91 04/09/21 09:35 81 15 138/73 04/09/21 09:27 36.4 C L 90 14 157/80 H 04/09/21 05:43 36.5 C 67 20 154/83 H Pulse Ox 04/09/21 15:18 96 04/09/21 14:44 97 04/09/21 12:34 98 04/09/21 11:32 98 04/09/21 11:05 97 04/09/21 10:42 98 04/09/21 10:20 94 04/09/21 10:05 96 04/09/21 09:55 93 04/09/21 09:45 97 04/09/21 09:35 97 04/09/21 09:27 96 04/09/21 05:43 98
[2021-04-09] MEDS: ceFAZolin 2000MG 2,000 MG/15 ML SYR IV SCH ×2 (16:27→22:59)
[2021-04-09] MEDS ORDERED: ZOLPIDEM TARTRATE 5 MG TAB PO SCH (21:00)
[2021-04-09] MEDS ORDERED: SENNA 8.6 MG TAB PO SCH (21:00)
[2021-04-10] MEDS: ACETAMINOPHEN 500 MG TAB PO SCH ×2 (05:54→13:20)
[2021-04-10] MEDS: KETOROLAC TROMETHAMINE 15 MG/ML VIAL IV SCH (05:55)
[2021-04-10 06:41] LABS: Hematocrit (blood only) 35.8 % (37-47); Mean Corpuscular Hgb Conc 33.5 g/dL (32-36); Mean Corpuscular Volume 95.5 fL (80-100); Mean Platelet Volume 10.3 fL (7.4-10.4); Platelet Count 182 K/uL (130-400); RDW Coefficient of Variation 13.2 % (11.5-14.5); RDW Standard Deviation 46.6 fL (36.4-46.3); Red Blood Count 3.75 M/uL (4.2-5.4); White Blood Count 7.29 K/uL (4.8-10.8)
[2021-04-10 07:27] LABS: BUN Creatinine Ratio 23.2 (10-20); Calcium 8.4 mg/dl (8.5-10.1); Creatinine Clr Calc Pharmacy 64.7 ml/min; Est GFR (African American) 76.6 ml/min; Est GFR (Non-African American) 66.1 ml/min; Potassium 3.9 mmol/L (3.5-5.1)
--- NOTE | 2021-04-10 08:15 | Orthopedic Progress Note ---
Date of Service April 10, 2021 Assessment & Plan (1) Degenerative joint disease of knee, right: s/p R TKA POD#1 -ancef x 24 -DVT ppx: SCDs, TEDs, 81mg ASA BID -WBAT RLE -PT/OT -PO XR demonstrates well aligned well fixed prothesis without fracture/dislocation -am labs - as above, hgb 12.0 -DC planning - home with HH Admission and Anticipated Discharge Date Admission Date: April 09, 2021 Subjective Post Operative Progress Note Patient seen sitting up in bed, comfortable, denies complaints, pain well controlled, no acute issues. Denies F/C/N/V/SOB/CP. Review of Systems Review of Systems: All systems reviewed & are unremarkable except as noted in HPI & below Constitutional: as per Subjective / HPI Physical Exam Physical Exam: RLE NVSI +EHL/FHL/TA/GS SILT grossly, +2 DP pulse, compartments soft NT, dressing cdi. Constitutional: WD/WN, vitals as above Results & Data ([facility]) Vital Signs (Past 12 Hours) Vital Signs Temp Pulse Resp BP Pulse Ox 04/10/21 07:15 36.7 C 59 L 16 127/70 96 04/10/21 02:43 36.5 C 65 16 118/67 95 04/09/21 22:22 36.9 C 74 17 115/70 94 Laboratory Results 04/10/21 04/10/21 Range/Units 05:45 05:45 WBC 7.29 (4.8-10.8) K/uL RBC 3.75 L (4.2-5.4) M/uL Hgb 12.0 (12.0-16.0) g/dL Hct 35.8 L (37-47) % MCV 95.5 (80-100) fL MCH 32.0 (25-34) pg MCHC 33.5 (32-36) g/dL RDW Std Deviation 46.6 H (36.4-46.3) fL RDW Coeff of Barbara 13.2 (11.5-14.5) % Plt Count 182 (130-400) K/uL MPV 10.3 (7.4-10.4) fL Sodium 143 (136-145) mmol/L Potassium 3.9 (3.5-5.1) mmol/L Chloride 112 H (98-107) mmol/L Carbon Dioxide 25 (21-32) mmol/L Anion Gap 6.0 (3-11) BUN 20 H (7-18) mg/dl Creatinine 0.86 (0.6-1.2) mg/dl Est Cr Clr Drug Dosing 64.7 ml/min Est GFR ( Amer) 76.6 ml/min Est GFR (Non-Af Amer) 66.1 ml/min BUN/Creatinine Ratio 23.2 H (10-20) Glucose 104 H (70-99) mg/dl Calcium 8.4 L (8.5-10.1) mg/dl Specimen Hemolysis
--- NOTE | 2021-04-10 08:49 | Hospitalist Progress Note ---
Date of Service April 10, 2021 Assessment & Plan (1) Degenerative joint disease of knee, right: s/p R TKA POD #[address] Hurst EBL 50 ml tolerated procedure well Pain/wound management per Ortho Activity and therapy as prescribed by Ortho Encourage incentive spirometry and wean oxygen as able Monitor hemoglobin, pre op 15.1, hemoglobin 12.0 this morning (2) CKD (chronic kidney disease) stage 3, GFR 30-59 ml/min: baseline cr 1.0 avoid nephrotoxic agents Creatinine 0.86 (3) Swelling: pt denies hx of HTN states she takes triamterene/hctz for swelling no lower extremity swelling noted Resume triamterene/HCTZ tomorrow/on discharge (4) Depression: mood stable continue bupropion (5) DVT prophylaxis: ASA BID per ortho Dispo: per primary PCP: France Mccann FULL CODE Pt was seen and examined in collaboration with Dr. Lu, please see addendum Thank you for this consultation. We will follow the patient with you during their hospital stay. You can reach a member of the [facility] Hospitalist Team 27/04 via hospitalist role on tiger text. Admission and Anticipated Discharge Date Admission Date: April 09, 2021 Supervising Physician Co-Signing Physician Notes Patient seen and examined by me, care coordinated with Maye Batista PA-C, please refer to her note above for further detail. Patient status post right TKA, currently doing quite well. Denies any fevers, chills, chest pain, shortness of breath, abdominal pain, nausea or vomiting. Also denies any dizziness. She is alert and oriented and answering questions appropriately. Heart sounds regular. Lung sounds clear to auscultation bilaterally without any wheezing rhonchi or crackles. Abdomen soft, nontender nondistended. She is moving extremities. Acute blood loss/postoperative anemia, hemoglobin down to 12. No need for blood transfusion, blood loss expected. Some also dilutional. Patient reports history of PUD, will prescribe PPI as she will be on aspirin twice a day for prolonged time. She will further discuss with her family physician. Orlando Lu MD Subjective Patient was seen and examined in room 315. Follow-up right TKA. She is doing well this morning and states, "I am going home this afternoon." She currently denies any pain, fever, chills, sweats, lightheadedness, dizziness, chest pain, shortness of breath, nausea, vomiting, abdominal pain. She is passing urine. She has been up ambulating with a walker to the bathroom. She denies any dysuria or difficulty urinating. Her appetite is good. Review of Systems Review of Systems: All systems reviewed & are unremarkable except as noted in HPI & below Physical Exam Physical Exam: Gen: WD/WN, female, NAD, A&O x3 HEENT: Normocephalic, atraumatic, conjunctivae moist, sclerae anicteric, mucous membranes moist. Lung: Clear to Auscultation bilaterally, no wheezes/rales/rhonchi Heart: Regular rate, regular rhythm, no murmurs, rubs, or gallops Abdomen: Soft, NT, ND +BS x 4 Extremities: No edema, SCD/teds in place, right TKA incision and dressing CDI Skin: Warm, no rash, negative turgor. Results & Data Results & Data ([facility]) Vital Signs (Past 12 Hours) Vital Signs Temp Pulse Resp BP Pulse Ox 04/10/21 07:15 36.7 C 59 L 16 127/70 96 04/10/21 02:43 36.5 C 65 16 118/67 95 04/09/21 22:22 36.9 C 74 17 115/70 94 Laboratory Results Short CBC 04/10/21 Range/Units 05:45 WBC 7.29 (4.8-10.8) K/uL Hgb 12.0 (12.0-16.0) g/dL Hct 35.8 L (37-47) % Plt Count 182 (130-400) K/uL BMP 04/10/21 05:45 Sodium 143 Potassium 3.9 Chloride 112 H Carbon Dioxide 25 BUN 20 H Creatinine 0.86 Glucose 104 H Calcium 8.4 L Medications Administered Medication List Acetaminophen (Acetaminophen 500 Mg Tab) 1,000 mg PO Q8 [facility] Stop: 05/09/21 13:59 Last Admin: 04/10/21 05:54 Dose: 1,000 mg Documented by: [id number] Admin: 04/09/21 21:07 Dose: 1,000 mg Documented by: [id number] Admin: 04/09/21 14:44 Dose: 1,000 mg Documented by: [id number] Bupropion HCl (Bupropion Sr 150 Mg Tabcr) 300 mg PO QAM [facility] Stop: 05/09/21 10:41 Last Admin: 04/09/21 11:01 Dose: Not Given Documented by: [id number] Docusate Sodium (Docusate Sodium 100 Mg Cap) 100 mg PO BID [facility] Stop: 05/09/21 10:41 Last Admin: 04/09/21 21:08 Dose: 100 mg Documented by: [id number] Admin: 04/09/21 11:01 Dose: Not Given Documented by: [id number] Multivitamins (Multivitamin Tab) 1 tab PO QAM [facility] Stop: 05/09/21 10:41 Last Admin: 04/09/21 11:00 Dose: Not Given Documented by: [id number] Sennosides (Senna 8.6 Mg Tab) 17.2 mg PO [facility] Stop: 05/09/21 20:59 Last Admin: 04/09/21 21:08 Dose: 17.2 mg Documented by: [id number] Triamterene/Hydrochlorothiazide (Triamterene/Hctz 37.5/25mg Cap) 1 cap PO QAM [facility] Stop: 05/09/21 10:41 Last Admin: 04/09/21 11:00 Dose: Not Given Documented by: [id number] Zolpidem Tartrate (Zolpidem Tartrate 5 Mg Tab) 5 mg PO [facility] Stop: 05/09/21 20:59 Last Admin: 04/09/21 21:07 Dose: 5 mg Documented by: [id number] Discontinued Medications Acetaminophen (Acetaminophen 500 Mg Tab) 1,000 mg PO PREOP [facility] Stop: 04/09/21 18:00 Last Admin: 04/09/21 05:46 Dose: 1,000 mg Documented by: [id number] Celecoxib (Celebrex 200 Mg Cap) 200 mg PO PREOP [facility] Stop: 04/09/21 18:00 Last Admin: 04/09/21 05:50 Dose: Not Given Documented by: [id number] Famotidine (Famotidine 20 Mg Tab) 20 mg PO PREOP [facility] Stop: 04/09/21 18:00 Last Admin: 04/09/21 05:47 Dose: 20 mg Documented by: [id number] Gabapentin (Gabapentin 300 Mg Cap) 300 mg PO PREOP [facility] Stop: 04/09/21 18:00 Last Admin: 04/09/21 05:47 Dose: 300 mg Documented by: [id number] Cefazolin Sodium (Ancef 2000mg) 2,000 mg in 15 mls @ 3.75 mls/min IV PREOP [facility]; Protocol Stop: 04/09/21 18:00 Last Admin: 04/09/21 07:25 Dose: 3.75 mls/min Documented by: [id number] Ropivacaine 150 mg/Bupivacaine HCl 20 ml/Epinephrine HCl 0.15 mg/Ketorolac Tromethamine 30 mg/Dexamethasone 4 mg/ Ketamine HCl 10 mg/ Clonidine HCl 100 mc g/ Sodium Chloride 88.35 mls @ 0 mls/hr INSTIL TODAY@0600 [facility]; Protocol Stop: 04/09/21 06:01 Last Admin: 04/09/21 08:54 Dose: 1 mls/hr Documented by: [id number] Tranexamic Acid (Tranexamic Acid / 0.7% Nacl) 1,000 mg in 100 mls @ 600 mls/hr IV TODAY@0600 [facility] Stop: 04/09/21 18:00 Last Infusion: 04/09/21 07:25 Dose: 0 mls/hr Documented by: [id number] Admin: 04/09/21 07:09 Dose: 600 mls/hr Documented by: [id number] Tranexamic Acid (Tranexamic Acid / 0.7% Nacl) 1,000 mg in 100 mls @ 600 mls/hr IV TODAY@0600 [facility] Stop: 04/09/21 18:00 Last Infusion: 04/09/21 10:57 Dose: 0 mls/hr Documented by: [id number] Admin: 04/09/21 08:48 Dose: 600 mls/hr Documented by: [id number] Lactated Ringer's (Lr) 1,000 mls @ 15 mls/hr IV .Q24H [facility] Stop: 04/09/21 18:00 Last Infusion: 04/09/21 07:25 Dose: 0 mls/hr Documented by: [id number] Admin: 04/09/21 05:49 Dose: 15 mls/hr Documented by: [id number] Sodium Chloride (Nss 1000ml) 1,000 mls @ 100 mls/hr IV .Q10H [facility] Stop: 04/10/21 06:00 Last Infusion: 04/10/21 05:57 Dose: 0 mls/hr Documented by: [id number] Admin: 04/09/21 21:06 Dose: 100 mls/hr Documented by: [id number] Infusion: 04/09/21 20:57 Dose: 100 mls/hr Documented by: [id number] Infusion: 04/09/21 14:57 Dose: 100 mls/hr Documented by: [id number] Admin: 04/09/21 10:57 Dose: 100 mls/hr Documented by: [id number] Cefazolin Sodium (Ancef 2000mg) 2,000 mg in 15 mls @ 3.75 mls/min IV Q8H [facility]; Protocol Stop: 04/10/21 00:03 Last Admin: 04/09/21 22:59 Dose: 3.75 mls/min Documented by: [id number] Admin: 04/09/21 16:27 Dose: 3.75 mls/min Documented by: [id number] Ketorolac Tromethamine (Ketorolac Tromethamine 15 Mg/Ml Vial) 15 mg IV Q6H [facility] Stop: 04/10/21 06:01 Last Admin: 04/10/21 05:55 Dose: 15 mg Documented by: [id number] Admin: 04/09/21 22:59 Dose: 15 mg Documented by: [id number] Admin: 04/09/21 18:17 Dose: 15 mg Documented by: [id number] Admin: 04/09/21 12:30 Dose: 15 mg Documented by: [id number] Metoclopramide HCl (Metoclopramide Hcl 10 Mg Tablet) 10 mg PO PREOP [facility] Stop: 04/09/21 18:00 Last Admin: 04/09/21 05:47 Dose: 10 mg Documented by: [id number] Miscellaneous (Ortho Joint Anesthetic ) Confirm Administered Dose 1 ea .ROUTE .STK-MED ONE Stop: 04/09/21 07:16 Last Admin: 04/09/21 08:20 Dose: Not Given Documented by: [id number] Oxycodone HCl (Oxycodone Hcl 10 Mg Tabcr (Oxycontin)) 10 mg PO PREOP [facility] Stop: 04/09/21 18:00 Last Admin: 04/09/21 05:48 Dose: 10 mg Documented by: [id number]
[2021-04-10] MEDS: DOCUSATE SODIUM 100 MG CAP PO SCH (08:59)
[2021-04-10] MEDS: buPROPion SR 150 MG TABCR PO SCH (08:59)
[2021-04-10] MEDS: MULTIVITAMIN TAB PO SCH (08:59)
[2021-04-10] MEDS ORDERED: ASPIRIN 81 MG ECTAB PO SCH (09:00)
--- NOTE | 2021-04-13 13:46 | Discharge Summary ---
Date of Service April 13, 2021 Admission HPI Per Admitting Provider The patient is a 75 year old female who presents with complaints of severe right knee pain and DJD. The patient has failed outpatient conservative treatments to this point which included NSAIDs, IA corticosteroid and LISA injections, home exercise/walking program. The patient's pain and limited function have progressed to the point where they severely hinder their activities of daily living and they no longer tolerate exercise programs. They are requesting to proceed with total knee replacement surgery. Principal Diagnosis Right total knee replacement Discharge Exam RLE NVSI +EHL/FHL/TA/GS SILT grossly, +2 DP pulse, compartments soft NT, dressing cdi. Constitutional WD/WN, vitals as above Discharge Data Allergies Allergy/AdvReac Type Severity Reaction Status Date / Time codeine Allergy Intermediate Hives Verified 04/09/21 05:34 meperidine Allergy Unknown PT UNSURE Verified 04/09/21 05:34 OF RXN celecoxib [From Celebrex] AdvReac Mild GI UPSET, Verified 04/09/21 05:34 DIARRHEA Consultations 04/04/21 15:38 Consult Hospitalist Routine Procedures Performed Operation Date: 04/09/21 07:15 Actual Procedures p Right Total Knee Arthroplasty(Right) - Boo Hurst DO Ordered Studies 04/09/21 05:00 US - OR guided needle placemen Routine Hospital Course (1) Degenerative joint disease of knee, right: Hospital Course: On 04/09/21 the patient was taken to the operating room, adequate anesthesia administered and underwent a right total knee arthroplasty. The patient tolerated the procedure well and was taken to the PACU in stable condition. Post-operatively the patient was started on a DVT ppx medication and given appropriate IV antibiotics. Consults were placed to physical therapy, occupational therapy and case management. On POD#1, the patient did well overnight and their pain was well controlled. Labs were drawn and the Hgb was 12.0. The patient progressed well with PT. Dressings were changed at this time and the incision was clean, dry and intact. The patients hospital stay was relatively uneventful and they were deemed stable by the orthopedic team and consultants to be discharged home with on 04/10/21. Discharge Instructions: Upon discharge the patient may weight bear as tolerates through their operative extremity. They were instructed to keep the incision clean and dry at all times. The patient may shower but should not submerge the incision, avoid bathing, pools and hot tubs. The patient was given a script for pain medication and should take as instructed. The patient was given a script for DVT ppx 81mg ASA BID and should take as directed. The patient was instructed to not drive or travel for long distances until cleared to do so. If the patient develops any symptoms of fevers, chills, nausea, vomiting, increased redness, swelling, pain or drainage from the surgical site, they should notify the office and/or proceed to the nearest emergency room. The patient should follow up in 10-14 days after surgery for their routine post-operative follow-up appointment and should call the office, to confirm the date and time. s/p R TKA POD#1 -ancef x 24 -DVT ppx: SCDs, TEDs, 81mg ASA BID -WBAT RLE -PT/OT -PO XR demonstrates well aligned well fixed prothesis without fracture/dislocation -am labs - as above, hgb 12.0 -DC planning - home with Total Time Total Time Spent Total Time Spent (In Minutes): 30 Discharge Plan Discharge Items Patient Disposition: Home - Home Health Services Reason For Visit: Osteoarthritis, Right Knee Discharge Diagnosis: Right total knee replacement Condition on Discharge: Good Activity: Per Instructions section Lifting: Wait until after follow-up appointment Bathing: Keep incision dry Bathing Comment: No bathing, pools or hot tubs. Sexual Activity: Wait until after follow-up appointment Exercise/Sports: Wait until after follow-up appointment Driving/Machine Use: No driving. Weightbearing: Full weightbearing Non-emergency contact: Primary Care Provider and Surgeon Call non-emergency contact if: you have any medication questions, your symptoms worsen, your pain is not controlled, your pain is worsening, your pain is unusual for you, your pain is concerning for you, you have a fever, your temperature is above 101, your wound has increased redness, your wound has increased drainage and your wound pain has increased Follow-up/Referrals: Payam Mccann, [Primary Care Provider] - Diet: Regular Addtl Attending Provider Instructions: ACTIVITY RECOMMENDATIONS: SELF CARE INSTRUCTIONS AFTER TOTAL KNEE REPLACEMENT A. You may need to continue a physical therapy program after discharge from the hospital. There are several options available to you. Your doctor will assist you in selecting the best one for you. 1. An out-patient facility 2 to 3 times a week for therapy or home therapy. 2. Continue working on all exercises taught to you in the hospital. Your goals should be to increase bending of your knee to 90 degrees and beyond and to fully straighten your knee. B. You may progress at your own pace from walking with a walker or crutches to a cane; then to no assistive devices. C. Make walking a part of your daily routine. Be up as much as comfortable with rest periods throughout the day. Rest with leg elevation is very important. Use the ice wrap frequently for the first 3-4 weeks. D. There are no restrictions on activities. You may ride in a car, shop, participate in bag washer and all social activities. E. Wear the long elastic stockings (CHARITO hose) 20 hours a day for 2 weeks after surgery. They can be removed several times a day for laundering and for a bath. F. You may shower, no tub baths until cleared by your doctor. SPECIAL CARE INSTRUCTIONS: VERY IMPORTANT TO READ AND REVIEW A. There are a few signs you need to watch for after you are home. Call [facility] [place] if you notice any of the followin. Increased severe knee pain. Some pain is expected especially when you exercise. 2. Increased swelling in your leg or knee; pain or swelling of the calf muscle in either lower leg. 3. Any fluid drainage from the incision. 4. Shortness of breath or chest pain. B. Please call [facility] at if you have any concerns or questions about your operation or recovery. The doctor or his nurse will return your call promptly. C. You must take antibiotics before dental work, bladder, bowel or other surg lily. Your doctor will provide you with a permanent care to carry describing this precaution. IMPORTANT: * REMEMBER TO TAKE ASPIRIN, 81 MG, TWICE DAILY FOR 4 WEEKS UNLESS OTHERWISE DIRECTED. THIS IS YOUR BLOOD THINNER. * HIGH RISK PATIENTS MAY BE PRESCRIBED A STRONGER BLOOD THINNER. THIS WILL BE PROVIDED AT DISCHARGE. * CALL IF INCREASED PAIN, REDNESS, DRAINAGE OR FEVER GREATER THAT 101. * WEAR CHARITO HOSE 20 HOURS PER DAY FOR 2 WEEKS. *ANNIE incisional vac is a special dressing covering your incision. This dressing provides a sterile dry environment while you are healing. The dressing is to be left in place for 7 days post-operatively. Your home nurse or surgeon will remove. If you develop any redness or blisters or have any questions notify your surgeon immediately. IF INCISION IS LEAKING THROUGH DRESSING, CALL THE OFFICE . FOLLOW UP VISIT: If appointment is not already scheduled: Please call [facility] [place] to make a follow-up appointment for 2 weeks after your surgery at . Pending Studies at Discharge: No Stand-Alone Forms: [facility], Opioid Pain Management, Smoking Cessation Medications and DC Order Prescriptions: New aspirin 81 mg Tablet,Delayed Release (Dr/Ec) 81 mg PO BID Qty: 56 RF: 0 acetaminophen 500 mg Tablet 1,000 mg PO Q8 PRN (Reason: pain/fevers) Qty: 90 RF: 0 oxycodone 5 mg Tablet 5 mg PO Q6H MDD 4 PRN (Reason: pain) Qty: 30 RF: 0 sennosides [Senokot] 8.6 mg Tablet 17.2 mg PO HS PRN (Reason: constipation) Qty: 30 RF: 0 pantoprazole 40 mg tablet,delayed release (DR/EC) 40 mg PO DAILY Qty: 30 RF: 0 Continued bupropion HCl 150 mg Tablet Extended Release 12 Hr 300 mg PO QAM Qty: 0 RF: 0 triamterene-hydrochlorothiazid 37.5-25 mg Capsule 1 cap PO QAM Qty: 0 RF: 0 calcium carbonate-vitamin D3 [Calcium 500 + D] 500 mg(1,250mg) -200 unit Tablet 2 tab PO QAM Qty: 0 RF: 0 PreserVision AREDS-2 [id number] Capsule 1 tab PO QAM RF: 0 calcium carbonate-vitamin D3 600 mg(1,500mg) -200 unit Tablet 1 tab PO QAM RF: 0 docusate sodium [Colace] 100 mg Capsule 100 mg PO BID RF: 0 zolpidem [Ambien] 5 mg Tablet 5 mg PO HS RF: 0 [id number] [krill oil] [id number] mg Capsule 1 cap PO QAM RF: 0 turmeric 400 mg Capsule 400 mg PO BID RF: 0 Discontinued acetaminophen [Pain Reliever (acetaminophen)] 500 mg Tablet 1,000 mg PO Q8H Qty: 0 RF: 0 Discharge Orders: Discharge Order (Routine); Ordered 04/10/21 Ordered By: Boo Yañez/Other Patient Handouts: Total Knee Replacement, Understanding Knee Replacement, After Knee Replacement: Back at Home, Knee Replace First Month Admission Data Admit Date/Time: 04/09/21 09:46 Attending Provider: Boo Hurst Admit Provider: Boo Hurst Primary Care Provider: Payam Mccann Other Providers: Palomo Lu ; [facility] Other Interventions: Discharge Summary Assessment (RN) Last Done: 04/10/21 12:44
== END 2021-04-10 14:35 | disposition home health service (06) ==
LOC: 3E 05:00 → ASU 05:00